=== PATIENT | male | born 1960 | race Caucasian/White ===

== ENCOUNTER 2023-12-21 15:22 | Outpatient (CLI) | payer MEDICAID | END 2023-12-21 23:59 | disposition home or self-care (01) | LOC: RAD 15:22 | PROVIDERS: ATTEND Student in an Organized Health Care Education/Training Program | DX: M17.0 Bilateral primary osteoarthritis of knee (principal); M25.461 Effusion, right knee; M25.561 Pain in right knee | CPT/HCPCS: 73564 ==

== ENCOUNTER 2025-07-08 10:18 | Outpatient (CLI) | payer MEDICAID ==
--- NOTE | 2025-07-08 16:02 | RADIOLOGY REPORT ---
CLINICAL INDICATION: PRIMARY OSTEOARTHRITIS, LEFT ANKLE AND FOOT TECHNIQUE: Noncontrast CT of the left ankle was performed. Sagittal and coronal reformatted images are provided. COMPARISON: None. CT Dose: CTDI volume is 16.4 mGy. Dose-length product is 330.1 mGy*cm FINDINGS: No acute fracture or dislocation. There is a dorsal plate and several screws across the 1st metatarsophalangeal joint. Tibiotalar joint space narrowing and osteophytes noted. Subtalar joint space narrowing and osteophytes noted. There is abnormal contact of the distal fibula with the talus and the calcaneus with osteophytes arising from the distal fibula. There is fusion of the anterior process of the calcaneus to the talus. Midfoot arthrosis is noted characterized by tarsometatarsal joint space narrowing and osteophyte formation. There is pes planovalgus. Soft tissue swelling noted in the foot. Heel spur noted. IMPRESSION: 1. No acute fracture. 2. Osteoarthritis in the hindfoot and midfoot joints. Pes planovalgus. 3. Findings consistent with subfibular impingement. 4. Mild soft tissue swelling of the lateral malleolus. All CT scans at this medical facility are performed using dose modulation techniques as appropriate to a performed exam including the following: Automated exposure control was utilized; adjustment of the MA and/or KV according to patient size; and use of iterative reconstruction technique.
== END 2025-07-08 23:59 | disposition home or self-care (01) ==
LOC: RAD 10:18
PROVIDERS: ATTEND Nurse Practitioner Family
DX: M25.472 Effusion, left ankle (principal); M19.072 Primary osteoarthritis, left ankle and foot; M21.42 Flat foot [pes planus] (acquired), left foot; M25.872 Other specified joint disorders, left ankle and foot; M25.772 Osteophyte, left ankle; M77.32 Calcaneal spur, left foot
CPT/HCPCS: 73700